=== PATIENT | female | born 1990 | race Caucasian/White ===

== ENCOUNTER → 2024-11-09 08:32 | Outpatient (REF) | payer OTHER, SELFPAY | LOC: WDC 08:32 | DX: N63.20 Unspecified lump in the left breast, unspecified quadrant (principal); N63.23 Unspecified lump in the left breast, lower outer quadrant | CPT/HCPCS: 76642 ==

== ENCOUNTER → 2025-02-16 08:46 | Outpatient (REF) | payer OTHER, SELFPAY | LOC: WDC 08:46 | DX: R92.8 Other abnormal and inconclusive findings on diagnostic imaging of breast (principal) | CPT/HCPCS: 76642 ==